=== PATIENT | female | born 1980 | race African-American/Black ===

== ENCOUNTER 2016-10-07 17:44 | Emergency (ER) | payer OTHER ==
[~2016-10-07] VITALS: Ht 170.2 cm; Wt 56.5 kg
[2016-10-07 17:57] VITALS: Ht 170.2 cm; Wt 56.5 kg
[2016-10-07] MEDS ORDERED: CYCL-319 PO (18:25)
[2016-10-07] MEDS ORDERED: IBUP-1542 PO (18:25)
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
== END 2016-10-07 18:30 | disposition home or self-care (01) ==
LOC: E/R 17:44
DX: S39.92XA Unspecified injury of lower back, initial encounter (principal); V89.2XXA Person injured in unspecified motor-vehicle accident, traffic, initial encounter
CPT/HCPCS: 99283